=== PATIENT | female | born 2000 | race Caucasian/White ===

== ENCOUNTER 2020-01-08 05:12 | Emergency (ER) | payer SELFPAY ==
[~2020-01-08] VITALS: Ht 157.5 cm; Wt 53.8 kg
[2020-01-08 05:19] VITALS: BP 115/83
[2020-01-08 06:46] VITALS: BP 115/83
== END 2020-01-08 06:46 | disposition home or self-care (01) ==
LOC: MED 05:12
DX: J06.9 Acute upper respiratory infection, unspecified (principal)
CPT/HCPCS: 99283

== ENCOUNTER 2020-09-02 15:38 | Emergency (ER) | payer SELFPAY ==
[~2020-09-02] VITALS: Ht 157.5 cm; Wt 54.9 kg
[2020-09-02 16:16] VITALS: BP 115/71
--- NOTE | 2020-09-02 16:17 | NUR ---
Pt ambulated to bed 9.
--- NOTE | 2020-09-02 16:18 | NUR ---
19 y/o female A&OX4 c/o right breast pain 8/10 X3 days describes as sharp worst with palpation. Denies fever, chills, N/V/D. Denies PMH, RX NKA
--- NOTE | 2020-09-02 16:54 | NUR ---
Female Tip Finisher accompanied female patient for breast Exam.
--- NOTE | 2020-09-02 16:57 | NUR ---
Dr. Tee at bedside for [place]/S. 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
[2020-09-02 17:12] VITALS: BP 115/71
--- NOTE | 2020-09-02 17:12 | NUR ---
Patient discharged with v/s stable. Written and verbal after care instructions given and explained. Patient verbalized understanding. Ambulatory with steady gait. All questions addressed prior to discharge. Advised to follow up with PMD.
== END 2020-09-02 17:12 | disposition home or self-care (01) ==
LOC: MED 15:38
DX: N61.0 Mastitis without abscess (principal)
CPT/HCPCS: 99284

== ENCOUNTER 2020-11-22 18:46 | Emergency (ER) | payer SELFPAY ==
[~2020-11-22] VITALS: Ht 157.5 cm; Wt 54.4 kg
[2020-11-22 18:49] VITALS: BP 109/69
--- NOTE | 2020-11-22 18:57 | NUR ---
PATIENT AMBULATED TO BED 7.
--- NOTE | 2020-11-22 19:17 | NUR ---
RECEIVED REPORT FROM DIMA DAY FOR CONTINUATION OF CARE AT THIS TIME.
--- NOTE | 2020-11-22 19:45 | NUR ---
PT IS SITTING UPRIGHT WITH HOB ELEVATED IN SEMI FOWLERS POSITION, BED IS LOCKED AND IN LOWEST POSITION, SIDE RAILSX1. NO ACUTE DISTRESS NOTED AT THIS TIME. PT IS ON HER PHONE. CALL LIGHT WITHIN REACH.
--- NOTE | 2020-11-22 19:45 | NUR ---
19 Y/O FEMALE PRESENTED TO THE ED C/O ABSCESS TO ANTERIOR [id number] DAYS ACCOMPANIED BY PAIN 7/10 CONSTANT STINGING PAIN THAT IS WORSENED BY EXTENSION OF NECK IN UPWARD DIRECTION. VISIBLE REDNESS SURROUNDING ABSCESS, NO EDEMA NOTED. NO PURULENT DRAINAGE NOTED. +PAIN TO PALPATION. DENIES SOB/FEVER/N/V/DIARRHEA. NO ACUTE DISTRESS NOTED. DENIES TAKING MEDICATIONS PMH: APPENDECTOMY NKA
--- NOTE | 2020-11-22 20:17 | NUR ---
ERMD FLAMMIA AT BEDSIDE
[2020-11-22] MEDS ORDERED: LIDOCAINE/EPI 1% 1:100000 20 ML VIAL INJ ONE (20:35)
--- NOTE | 2020-11-22 20:47 | NUR ---
Dr. Lopez examining patient.
[2020-11-22 21:00] VITALS: BP 112/73
--- NOTE | 2020-11-22 21:42 | NUR ---
Patient discharged with v/s stable. Written and verbal after care instructions given and explained. Patient alert, oriented and verbalized understanding of instructions. Ambulatory with steady gait. All questions addressed prior to discharge. ID band removed. Patient advised to follow up with PMD. Rx of MOTRIN AND BACTRIM given. Patient educated on indication of medication including possible reaction and side effects. Opportunity to ask questions provided and answered.
== END 2020-11-22 21:42 | disposition home or self-care (01) ==
LOC: MED 18:46
DX: L02.11 Cutaneous abscess of neck (principal); Z90.49 Acquired absence of other specified parts of digestive tract
CPT/HCPCS: 10060; 99282; J2001